=== PATIENT | male | born 2000 | race Hispanic/Latino ===

== ENCOUNTER 2025-01-22 01:14 | Emergency (ER) | payer SELFPAY ==
[2025-01-22] MEDS ORDERED: DIAZEPAM 10 MG/2 ML INJ SYRINGE ONE (02:08)
--- NOTE | 2025-01-22 03:02 | ER ---
Nurse's Notes [facility] Name: Jones Holliday Age: 24 yrs Sex: Male : 2000 Arrival Date: 01/22/2025 Time: 01:14 Bed 12 Private MD: Diagnosis: Foreign body in esophagus Presentation: 01/22 01:29 Chief complaint: Patient states: WAS EATING SNACKS AND FEELS LIKE IT WENT DOWN THE jj7 WRONG PIPE. IT FEELS STUFF. COULD BE CHIPS, PEANUTS OR CUCUMBERS. STATES NOW EVERYTHING HE EATS AND DRINKS COMES BACK UP. Coronavirus screen: At this time, the client does not indicate any symptoms associated with coronavirus-19. Ebola Screen: No symptoms or risks identified at this time. Initial Sepsis Screen: Does the patient meet any 2 criteria? No. Patient's initial sepsis screen is negative. Does the patient have a suspected source of infection? No. Patient's initial sepsis screen is negative. Risk Assessment: Do you want to hurt yourself or someone else? Patient reports no desire to harm self or others. Onset of symptoms was January 22, 2025. 01:29 Method Of Arrival: Ambulatory [facility] 01:29 Acuity: BHARATHI 4 jj7 Triage Assessment: 01:32 General: Appears in no apparent distress. comfortable, Behavior is calm, cooperative, jj7 appropriate for age. Pain: Denies pain. EENT: Reports FEELS LIKE SOMETHING IS STUCK IN HIS THROAT. Neuro: No deficits noted. Cardiovascular: No deficits noted. Respiratory: No deficits noted. Airway is patent Trachea midline Respiratory effort is even, unlabored, Respiratory pattern is regular, symmetrical. Historical: - Allergies: :32 No Known Allergies; jj7 - PMHx: 01:32 None; jj7 - PSHx: 01:32 None; jj7 - Immunization history:: Adult Immunizations unknown. - Infectious Disease History:: Denies. - Social history:: Smoking status: Patient denies any tobacco usage or history of. Patient/guardian denies using alcohol, street drugs, IV drugs. Screenin:02 [facility] ED Fall Risk Assessment (Adult) History of falling in the last 3 months, jb4 including since admission No falls in past 3 months (0 pts) Confusion or Disorientation No (0 pts) Intoxicated or Sedated No (0 pts) Impaired Gait No (0 pts) Mobility Assist Device Used No (0 pt) Altered Elimination No (0 pt) Score/Fall Risk Level 0 - 2 = Low Risk Oriented to surroundings, Maintained a safe environment. Abuse screen: Denies threats or abuse. Nutritional screening: No deficits noted. Tuberculosis screening: No symptoms or risk factors identified. Assessment: 02:02 General: Appears in no apparent distress. comfortable, Behavior is calm, cooperative, jb4 appropriate for age. Pain: Denies pain. Neuro: Level of Consciousness is awake, alert, obeys commands, Oriented to person, place, time, situation. Cardiovascular: Patient's skin is warm and dry. Respiratory: Airway is patent Respiratory effort is even, unlabored, Respiratory pattern is regular, symmetrical. Derm: Skin is intact, Skin is pink, warm \T\ dry. Musculoskeletal: Circulation, motion, and sensation intact. Range of motion: intact in all extremities. 02:53 Reassessment: Patient appears in no apparent distress at this time. Patient and/or jb4 family updated on plan of care and expected duration. Pain level reassessed. Patient is alert, oriented x 3, equal unlabored respirations, skin warm/dry/pink. Pt tolerating Gingerale and Jello po challenge. Provider aware. 03:05 Reassessment: ASSUMED CARE OF PT. PT SITTING IN BED. NO DISTRESS NOTED Patient states jj7 feeling better. Patient states symptoms have improved. Vital Signs: 01:29 BP 116 / 85; Pulse 81; Resp 20; Pulse Ox 100% ; Weight 77.11 kg; Height 5 ft. 6 in. ; jj7 Pain 0/10; 03:25 BP 118 / 80; Pulse 79; Resp 20; Temp 97.5; Pulse Ox 100% ; jj7 01:29 Body Mass Index 27.44 (77.11 kg, 167.64 cm) jj7 01:29 Pain Scale: Adult jj7 ED Course: 01:17 Patient arrived in ED. mr 01:32 Triage completed. jj7 01:32 Arm band placed on right wrist. Patient placed in an exam room, on a stretcher. jj7 01:50 Yomi Hodges DO is Attending Physician. tt7 02:02 Patient has correct armband on for positive identification. Bed in low position. Call jb4 light in reach. Side rails up X 1. Provided Education on: plan of care. 02:02 No provider procedures requiring assistance completed. jb4 02:35 Kerwin Marquez, RN is Primary Nurse. jb4 03:25 Patient did not have IV access during this emergency room visit. jj7 Administered Medications: 02:11 Drug: Diazepam IM 5 mg IM once Route: IM; Site: right deltoid; jb4 03:38 Follow up: Response: Marked relief of symptoms jj7 Medication: 02:02 VIS not applicable for this client. jb4 Outcome: 03:02 Discharge ordered by ttKarlene 03:25 Discharged to home ambulatory, with significant other, jj7 03:25 Condition: improved 03:25 Discharge instructions given to patient, Instructed on discharge instructions, Demonstrated understanding of instructions, 03:37 Patient left the ED. jj7 Signatures: Jess Paul, Reg Reg mr Kerwin Marquez, RN RN jb4 Fantasma Isaacs RN RN jj7 Yomi Hodges, DO tt7
--- NOTE | 2025-01-22 03:03 | EDPHYS ---
Physician Documentation [facility] Name: Jones Holliday Age: 24 yrs Sex: Male : 2000 Arrival Date: 01/22/2025 Time: 01:14 Bed 12 Private MD: ED Physician Yomi Hodges HPI: 01/22 03:07 This 24 yrs old Male presents to ER via Ambulatory with complaints of Foreign tt7 Body In Throat. Historical: - Allergies: 01:32 No Known Allergies; jj7 - PMHx: 01:32 None; jj7 - PSHx: 01:32 None; jj7 - Immunization history:: Adult Immunizations unknown. - Infectious Disease History:: Denies. - Social history:: Smoking status: Patient denies any tobacco usage or history of. Patient/guardian denies using alcohol, street drugs, IV drugs. Vital Signs: 01:29 BP 116 / 85; Pulse 81; Resp 20; Pulse Ox 100% ; Weight 77.11 kg; Height 5 ft. 6 in. ; jj7 Pain 0/10; 03:25 BP 118 / 80; Pulse 79; Resp 20; Temp 97.5; Pulse Ox 100% ; jj7 01:29 Body Mass Index 27.44 (77.11 kg, 167.64 cm) jj7 01:29 Pain Scale: Adult jj7 MDM: 01:50 Medical Screening Exam initiated tt7 01/22 02:02 Order name: PO challenge; Complete Time: 02:35 tt7 Administered Medications: 02:11 Drug: Diazepam IM 5 mg IM once Route: IM; Site: right deltoid; jb4 03:38 Follow up: Response: Marked relief of symptoms jj7 Disposition Summary: 01/22/25 03:02 Discharge Ordered Notes: Location: Home tt7 Problem: new tt7 Symptoms: are resolved tt7 Condition: Stable tt7 Diagnosis - Foreign body in esophagus tt7 Followup: tt7 - With: Emergency Department - When: As needed - Reason: Followup: tt7 - With: Private Physician - When: 2 - 3 days - Reason: Recheck today's complaints, Re-evaluation by your physician Discharge Instructions: - Discharge Summary Sheet tt7 - Dysphagia tt7 Forms: - Medication Reconciliation Form tt7 - Antibiotic Education tt7 - Prescription Opioid Use tt7 - Patient Portal Instructions tt7 - Leadership Thank You Letter tt7 Signatures: Kerwin Marquez RN RN jb4 Fantasma Isaacs RN RN jj7 Yomi Hodges DO DO tt7
[2025-01-22 03:56] VITALS: O2SAT 100
[2025-01-22 03:58] VITALS: BP 118/80; TEMP 97.5
== END 2025-01-22 03:37 | disposition home or self-care (01) ==
LOC: ER 01:14
DX: T18.108A Unspecified foreign body in esophagus causing other injury, initial encounter (principal)
CPT/HCPCS: 96372; 99284; J3360